=== PATIENT | female | born 1975 | race American Indian/Alaskan Native ===

== ENCOUNTER 2018-05-24 17:00 | Outpatient (CLI) | payer OTHER | END 2018-05-24 17:01 | disposition home or self-care (01) | LOC: RAD 17:00 ==

== ENCOUNTER 2018-06-11 07:24 | Outpatient (CLI) | payer OTHER | END 2018-06-12 07:25 | disposition home or self-care (01) | LOC: RAD 07:24 ==

== ENCOUNTER 2018-07-12 16:54 | Emergency (ER) | payer OTHER ==
[2018-07-12 17:08] VITALS: BMI 36.0
[2018-07-12 17:13] VITALS: PULSE 92; RESP 18; TEMP 98.2
[2018-07-12] MEDS ORDERED: Lidocaine 5% Patch TD ONE (17:19)
--- NOTE | 2018-07-12 17:45 | ED PDOC ---
Arrival/HPI - General Chief Complaint: Lower Extremity Problem/Injury Historian: Patient - History of Present Illness Narrative History of Present Illness (Text): 07/12/18 17:35 42y/o F with h/o sciatica presenting to the Emergency Department for sciatica pain. Patient describes the pain as sharp, radiating down from the gluteal region with lacinating pain down both legs worsened in the right leg. She states she was diagnosed with sciatica over a year ago and has since then been battling with attacks. She reports having difficulty standing up and ambulating and was unable to go to work today because of the pain. The patient states she had taken OTC medications and has been unable to see a neurologist until July. She denies any fevers, chills, chest pain, shortness of breath, abdominal pain, dizziness, nausea, emesis or parathesias. Time/Duration: Prior to Arrival Symptom Onset: Sudden Symptom Course: Unchanged Quality: Other (Sharp & lacinating) Activities at Onset: Rest Context: Standing, Walking, Home Past Medical History - Provider Review Nursing Documentation Reviewed: Yes - Travel History Have you recently traveled outside [place] w/in the past 3 mons?: No - Infectious Disease Hx of Infectious Diseases: None - Cardiac Hx Cardiac Disorders: No - Pulmonary Hx Respiratory Disorders: Yes Hx Asthma: Yes - Neurological Hx Neurological Disorder: No - HEENT Hx HEENT Disorder: No - Renal Hx Renal Disorder: No - Endocrine/Metabolic Hx Endocrine Disorders: No - Hematological/Oncological Hx Blood Disorders: No - Integumentary Hx Dermatological Disorder: Yes Other/Comment: Herpes - Musculoskeletal/Rheumatological Hx Musculoskeletal Disorders: Yes Other/Comment: sciatica - Gastrointestinal Hx Gastrointestinal Disorders: No - Genitourinary/Gynecological Hx Genitourinary Disorders: No - Psychiatric Hx Psychophysiologic Disorder: No Hx Substance Use: No - Surgical History Hx Appendectomy: Yes - Anesthesia Hx Anesthesia: Yes Hx Anesthesia Reactions: No - Suicidal Assessment Feels Threatened In Home Enviroment: No Family/Social History - Physician Review Nursing Documentation Reviewed: Yes Family/Social History: Unknown Family HX Smoking Status: Light Smoker < 10 Cigarettes Daily Hx Alcohol Use: No Hx Substance Use: No Allergies/Home Meds Allergies/Adverse Reactions: Allergies morphine Allergy (Verified 07/12/18 17:08) RASH Home Medications: Home Meds Medication Instructions Recorded Confirmed Albuterol Sulfate [Ventolin Hfa] 18 gm INH PRN PRN 07/12/18 07/12/18 Gabapentin 300 mg PO DAILY 07/12/18 07/12/18 Oxaprozin [Daypro] 600 mg PO DAILY 07/12/18 07/12/18 valACYclovir [Valtrex] 500 mg PO DAILY 07/12/18 07/12/18 Review of Systems - Physician Review All systems were reviewed & negative as marked: Yes - Review of Systems Musculoskeletal: Arthralgias, Myalgias Physical Exam Vital Signs Reviewed: Yes Vital Signs Temp Pulse Resp BP Pulse Ox 07/12/18 17:08 98.2 F 92 H 18 119/80 97 Temperature: Afebrile Blood Pressure: Normal Pulse: Regular Respiratory Rate: Normal Appearance: Positive for: Well-Appearing, Non-Toxic, Uncomfortable Mental Status: Positive for: Alert and Oriented X 3 - Systems Exam Head: Present: Atraumatic, Normocephalic Pupils: Present: PERRL Extroacular Muscles: Present: EOMI Conjunctiva: Present: Normal Mouth: Present: Moist Mucous Membranes Neck: Present: Normal Range of Motion Respiratory/Chest: Present: Clear to Auscultation. No: Good Air Exchange, Respiratory Distress Cardiovascular: Present: Regular Rate and Rhythm, Normal S1, S2. No: Murmurs Lower Extremity: Present: Other (positive straight leg raise b/l R>>>L) Neurological: Present: GCS=15, Speech Normal Skin: Present: Warm, Dry, Normal Color. No: Rashes Psychiatric: Present: Alert, Oriented x 3, Normal Insight, Normal Concentration Medical Decision Making ED Course and Treatment: 07/12/18 17:48 Impression 42F w/ h/o sciatica presenting with sciatica Differential Diagnosis Includes But Is Not Limited To: --Sciatica --Herniated disk --Lumbar stenosis Plan --Lidoderm Patch --Valium --Toradol Progress Notes - Medication Orders Current Medication Orders: Discontinued Medications Diazepam (Valium) 5 mg PO ONCE ONE; Protocol Stop: 07/12/18 17:21 Ketorolac Tromethamine (Toradol) 60 mg IM STAT STA Stop: 07/12/18 17:20 Lidocaine (Lidoderm) 1 ea TD ONCE ONE Stop: 07/12/18 17:20 Disposition/Present on Arrival - Present on Arrival Any Indicators Present on Arrival: No History of DVT/PE: No History of Uncontrolled Diabetes: No Urinary Catheter: No History of Decub. Ulcer: No History Surgical Site Infection Following: None - Disposition Have Diagnosis and Disposition been Completed?: Yes Diagnosis: Sciatica Disposition: HOME/ ROUTINE Disposition Time: 19:57 Patient Plan: Discharge Condition: IMPROVED Discharge Instructions (ExitCare): Sciatica (DC), Sciatica Exercises Print Language: KOREAN Additional Instructions: All medical record entries made by the Scribe were at my direction and personally dictated by me. I have reviewed the chart and agree that the record accurately reflects my personal performance of the history, physical exam, medical decision making, and the department course for this patient. I have also personally directed, reviewed, and agree with the discharge instructions and disposition. 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 Prescriptions: Diazepam [Valium] 2 mg PO Q6H #6 tablet Lidocaine 5% [Lidoderm] 1 each TP Q12 #5 patch Naproxen [Naprosyn Tab] 375 mg PO Q6H #12 tab Referrals: Handy Ramos MD [Medical Doctor] - Follow up with primary Christian Ashley MD [Staff Provider] - Follow up with primary Danilo Magallanes MD [Medical Doctor] - Follow up with primary Forms: [employer] (Mal[place]ian), WORK NOTE
[2018-07-12 22:09] VITALS: BP 129/72; O2SAT 99
== END 2018-07-12 22:00 | disposition home or self-care (01) ==
LOC: ED 16:54
DX: M54.30 Sciatica, unspecified side (principal)
CPT/HCPCS: 96372; 99283; J1885

== ENCOUNTER 2018-08-07 09:32 | Emergency (ER) | payer OTHER ==
[2018-08-07 09:33] VITALS: BMI 36.0
[2018-08-07 09:49] VITALS: RESP 18; TEMP 98; O2SAT 99
[2018-08-07] MEDS ORDERED: Sodium Chloride 0.9% 1,000 ML IV STA (10:21)
--- NOTE | 2018-08-07 10:39 | ED PDOC ---
Arrival/HPI - General Chief Complaint: Flu-like Symptoms Time Seen by Provider: 08/07/18 09:45 Historian: Patient - History of Present Illness Narrative History of Present Illness (Text): 08/07/18 10:37 42-year-old female with past medical history of asthma, presents to the emergency room complaining of nausea, headache, generalized weakness/fatigue, chills, decrease in appetite and headache for the past 3-4 weeks. Of note, 1 month ago patient was recently diagnosed with a thyroid lesion, she was advised by her PMD to have the lesion biopsied, she still has to make an appointment to get that procedure done. Otherwise patient denies any fever, cough, URI symptoms, sore throat, chest pain, shortness of breath, dizziness, abdominal pain, vomiting, diarrhea, recent travel, urinary symptoms. PMJamshid Antunez Past Medical History - Infectious Disease Hx of Infectious Diseases: None - Cardiac Hx Cardiac Disorders: No - Pulmonary Hx Respiratory Disorders: Yes Hx Asthma: Yes - Neurological Hx Neurological Disorder: No - HEENT Hx HEENT Disorder: No - Renal Hx Renal Disorder: No - Endocrine/Metabolic Hx Endocrine Disorders: No - Hematological/Oncological Hx Blood Disorders: No - Integumentary Hx Dermatological Disorder: Yes Other/Comment: Herpes - Musculoskeletal/Rheumatological Hx Musculoskeletal Disorders: Yes Other/Comment: sciatica - Gastrointestinal Hx Gastrointestinal Disorders: No - Genitourinary/Gynecological Hx Genitourinary Disorders: No - Psychiatric Hx Psychophysiologic Disorder: No Hx Substance Use: No - Surgical History Hx Appendectomy: Yes - Anesthesia Hx Anesthesia: Yes Hx Anesthesia Reactions: No Hx Malignant Hyperthermia: No - Suicidal Assessment Feels Threatened In Home Enviroment: No Family/Social History Family/Social History: No Known Family HX Smoking Status: Light Smoker < 10 Cigarettes Daily Hx Alcohol Use: No Hx Substance Use: No Allergies/Home Meds Allergies/Adverse Reactions: Allergies morphine Allergy (Verified 07/12/18 17:08) RASH Home Medications: Home Meds Medication Instructions Recorded Confirmed Albuterol Sulfate [Ventolin Hfa] 18 gm INH PRN PRN 07/12/18 07/12/18 Gabapentin 300 mg PO DAILY 07/12/18 07/12/18 Oxaprozin [Daypro] 600 mg PO DAILY 07/12/18 07/12/18 valACYclovir [Valtrex] 500 mg PO DAILY 07/12/18 07/12/18 Review of Systems - Review of Systems Constitutional: Fatigue. absent: Fevers Respiratory: absent: SOB, Cough Cardiovascular: absent: Chest Pain, Palpitations Gastrointestinal: Nausea. absent: Abdominal Pain, Diarrhea, Vomiting Musculoskeletal: absent: Arthralgias, Back Pain, Neck Pain Skin: absent: Rash, Skin Lesions Neurological: Headache. absent: Dizziness Physical Exam Vital Signs Temp Pulse Resp BP Pulse Ox 08/07/18 09:33 98 F 82 18 118/65 99 Temperature: Afebrile Blood Pressure: Normal Pulse: Regular Respiratory Rate: Normal Appearance: Positive for: Well-Appearing, Non-Toxic, Comfortable Pain Distress: Mild Mental Status: Positive for: Alert and Oriented X 3 - Systems Exam Head: Present: Atraumatic, Normocephalic Pupils: Present: PERRL Extroacular Muscles: Present: EOMI Conjunctiva: Present: Normal Ears: Present: Normal, NORMAL TM Mouth: Present: Dry Pharnyx: Present: Normal. No: ERYTHEMA, EXUDATE Neck: Present: Normal Range of Motion. No: Meningeal Signs, Lymphadenopathy Respiratory/Chest: Present: Clear to Auscultation, Good Air Exchange. No: Respiratory Distress, Accessory Muscle Use Cardiovascular: Present: Regular Rate and Rhythm, Normal S1, S2. No: Murmurs Abdomen: No: Tenderness, Distention, Peritoneal Signs Back: Present: Normal Inspection Upper Extremity: Present: Normal Inspection. No: Cyanosis, Edema Lower Extremity: Present: Normal Inspection. No: Edema Neurological: Present: GCS=15, CN II-XII Intact, Speech Normal Skin: Present: Warm, Dry, Normal Color. No: Rashes Psychiatric: Present: Alert, Oriented x 3, Normal Insight, Normal Concentration Medical Decision Making ED Course and Treatment: 08/07/18 10:35 Plan : - IV - Labs - UA, urine cx - EKG - Zofran / Toradol - Reassess / disposition - Influenza 12:30 EKG: NSR at 78 bpm, (-) acute ST changes, as read by PA. Labs reviewed, CBC within normal limits, rapid flu negative, UA shows no evidence of infection, CMP still pending. As per NURSING OFFICER the 1st specimen was hemolyzed, 2nd specimen redrawn by NURSING OFFICER. redraw 13:00 Lab came to redraw 3rd CMP, as per lab the last specimen was diluted and could not be run. 14:00 Lab came to draw the CMP again, however was not successful and now the patient is refusing lab draw from the NURSING OFFICER and the lab. 14:15 On reevaluation, patient reports improvement of symptoms, denies any headache, dizziness, nausea, has no other complaints. On exam, patient remains awake alert and oriented 3 in no acute distress. IVF still infusing. Patient is refusing blood draw by PA, patient asked to reconsider however the patient states that she is frustrated and does not want to be stuck another time. Patient states that she just wants to finish her IV fluids and leave the emergency room. Patient states that she does have a scheduled appointment already today with her doctor at 4:00 pm and will follow up with her doctor instead. The patient is choosing to leave against medical advice. I have personally explained to the patient that choosing to do so may result in permanent bodily harm or . I have discussed at great length that without further evaluation and monitoring there may be unforeseen circumstances and/or deterioration causing permanent bodily harm or as a result of their choice. The patient is alert, oriented, and shows the mental capacity to make clear decisions regarding the patients health care at this time. The patient continues to wish to leave against medical advice. In light of the patients decision to leave against medical advice, follow-up has been arranged and the patient is aware of the importance to following up as instructed. The patient has been advised that they should return to the emergency room immediately if they change their mind at any time, or if their condition begins to change or worsen in any way. - Medication Orders Current Medication Orders: Sodium Chloride (Sodium Chloride 0.9%) 1,000 mls @ 1,000 mls/hr IV .Q1H STA Stop: 08/07/18 11:20 Ketorolac Tromethamine (Toradol) 15 mg IVP STAT STA Stop: 08/07/18 10:23 Ondansetron HCl (Zofran Inj) 4 mg IVP STAT STA Stop: 08/07/18 10:23 - PA / [employer] WORK[employer] / Resident Statement / has reviewed & agrees with the documentation as recorded. Disposition/Present on Arrival - Present on Arrival Any Indicators Present on Arrival: No History of DVT/PE: No History of Uncontrolled Diabetes: No Urinary Catheter: No History of Decub. Ulcer: No History Surgical Site Infection Following: None - Disposition Have Diagnosis and Disposition been Completed?: Yes Diagnosis: Malaise and fatigue, Nausea, Anorexia Disposition: AGAINST MEDICAL ADVICE Disposition Time: 15:00 Patient Plan: Other (Patient wishes to leave AMA) Patient Problems: Current Active Problems Problem Status Onset Anorexia Acute Malaise and fatigue Acute Nausea Acute Condition: STABLE Discharge Instructions (ExitCare): Nausea and Vomiting, Adult (DC), Fatigue (DC) Additional Instructions: Thank you for letting us take care of you today. You were treated for malaise/fatigue, nausea, anorexia. The emergency medical care you received today was directed at your acute symptoms. If you were prescribed any medication, please fill it and take as directed. It may take several days for your symptoms to resolve. Return to the Emergency Department if your symptoms worsen, do not improve, or if you have any other problems. Please contact your doctor in 2 days for re-evaluation and follow up. Bring any paperwork you were given at discharge with you along with any medications you are taking to your follow up visit. Our treatment cannot replace ongoing medical care by a primary care provider (PCP) outside of the emergency department. Thank you for allowing the for; to (do) team to be part of your care today. If you had a urine, or wound culture: It will take several days for the results, if any change in treatment is needed we will contact you. Prescriptions: Ondansetron ODT [Zofran ODT] 4 mg PO DAILY PRN #20 odt PRN Reason: Nausea/Vomiting Referrals: Juanita Antunez MD [Primary Care Provider] - Follow up with primary Forms: [employer] (Swiss), WORK NOTE
[2018-08-07 11:22] LABS: BASO # 0.02 K/mm3 (0.0-2.0); BASO % 0.3 % (0.0-3.0); EOS # 0.2 (0.0-0.7); EOS % 2.6 % (1.5-5.0); HEMOGLOBIN 13.2 g/dL (12.0-16.0); LYMPH # 2.8 (1.2-3.4); LYMPH % 38.6 % (22.0-35.0); MEAN CELL VOLUME 91.5 fl (80.0-105.0); MEAN CORPUSCULAR HEMOGLOBIN 31.2 pg (25.0-35.0); MEAN CORPUSCULAR HGB CONC 34.1 g/dl (31.0-37.0); MEAN PLATELET VOLUME 10.2 fl (7.0-11.0); MONO # 0.5 (0.1-0.6); MONO % 6.9 % (1.0-6.0); RBC 4.23 10^6/uL (3.5-6.1); RED CELL DISTRIBUTION WIDTH 15.3 % (11.5-14.5); WHITE BLOOD COUNT 7.2 10^3/uL (4.5-11.0)
[2018-08-07 11:24] LABS: URINE BILIRUBIN NEGATIVE (NEGATIVE); URINE BLOOD SMALL (NEGATIVE); URINE GLUCOSE (UA) NEGATIVE (NEGATIVE); URINE LEUKOCYTE ESTERASE NEGATIVE Leu/uL (NEGATIVE); URINE PROTEIN NEGATIVE mg/dL (<30 mg/dL); URINE UROBILINOGEN 0.2 E.U./dL (<1 E.U./dL)
[2018-08-07 11:30] LABS: URINE APPEARANCE CLEAR (CLEAR); URINE COLOR YELLOW (YELLOW)
[2018-08-07 12:00] LABS: URINE BACTERIA MOD /hpf; URINE WBC 0 - 2 /hpf (0-6)
[2018-08-07 15:00] VITALS: BP 120/68; PULSE 88
--- NOTE | 2018-08-07 21:05 | CARD ---
APPROVED REPORT Date of service: 08/07/2018 EKG Measurement Heart [id number] <Conclusion> Normal sinus rhythm Normal ECG
== END 2018-08-07 15:27 | disposition left against medical advice (07) ==
LOC: ED 09:32
DX: R53.83 Other fatigue (principal); R11.0 Nausea; R63.0 Anorexia; Z68.36 Body mass index [BMI] 36.0-36.9, adult; J45.909 Unspecified asthma, uncomplicated; F17.210 Nicotine dependence, cigarettes, uncomplicated
CPT/HCPCS: 81001; 81025; 85025; 87086; 87804; 93005; 96374; 96375; 99284; J1885; J2405; J7030